=== PATIENT | male | born 1995 | race Caucasian/White ===

== ENCOUNTER 2020-04-11 16:09 | Emergency (ER) | payer OTHER, SELFPAY ==
[2020-04-11 16:11] VITALS: BP 152/82; PULSE 110; RESP 14; TEMP 36.6; O2SAT 98; BMI 31.9
[2020-04-11] MEDS: Lidocaine HCl 1 % MPF 5 ML VIAL SUBCUT (17:11)
--- NOTE | 2020-04-11 17:31 | ED.WOUNDLAC ---
HPI - Wound/Laceration General Chief Complaint: Wound/Laceration Stated Complaint: laceration Time Seen by Provider: 04/11/20 16:56 Source: patient Mode of arrival: ambulatory Limitations: no limitations History of Present Illness HPI narrative: 24-year-old male presenting to the ED with a laceration to his right hand after he cut himself with his window. Denies any other symptoms complaints or concerns at this time. Denies concerns of foreign body. Reports he is not up-to-date on tetanus. Related Data Allergies Allergy/AdvReac Type Severity Reaction Status Date / Time No Known Allergies Allergy Verified 04/11/20 16:50 Review of Systems Review of Systems: Constitutional : No Fever, No Chills, Cardiovascular : No Chest Pain, No SOB Respiratory : No Dyspnea Gastrointestinal : No abdominal pain Musculoskeletal : No Joint Swelling Skin : positive skin laceration, No Foreign bodies, No rash, No surrounding erythema Neuro : No Weakness, No Numbness/tingling Psych : No SI/HI/thoughts of self injury Yes all other systems are reviewed and are negative [facility] Past Medical History Attestation statement: The following information was validated with the patient. Social History Social History Smoking Status: Current every day smoker Substance Use Type: Marijuana Advance Directives: No Advance Directives Information Provided: No Physical Exam Vital Signs: Vital Signs: Last Vital Signs Temp 98 F 04/11/20 16:11 Pulse 110 H 04/11/20 16:11 Resp 14 04/11/20 16:11 BP 152/82 H 04/11/20 16:11 Pulse Ox 98 04/11/20 16:11 Body Mass Index 31.9 Vital signs have been reviewed as normal and appeared to be correct. Blood pressure normal. Heart rate normal. Respiration rate normal. Temperature normal. Oxygen saturation normal. Appearance: Alert. Oriented X3. No acute distress. Head: Normal external exam. Normocephalic. Atraumatic. Eyes: PERRLA. EOMI. Conjunctiva and sclera normal. Eyelids normal. ENT: Moist mucous membranes. Neck: Normal inspection. Neck supple. FROM. No adenopathy. No meningeal signs. CVS: Normal heart rate and rhythm. Heart sound normal. No murmurs noted. Pulses normal throughout. Respiratory: No respiratory distress. Painless inspiration Back: Full range of motion noted. Skin: Skin warm and dry. Normal skin color. Normal skin turgor. No rashes/lesions noted. to right Dorsal aspect of hand there is a 1 cm intermediate laceration noted. No foreign bodies noted. Extremities: Extremities exhibit normal range of motion. Extremities nontender. Neuro: Oriented X 3. No motor deficit. No sensory deficit. Reflexes normal. Course Course Course Narrative: Patient is now status post laceration repair. Patient tolerated procedure well. No complications. Patient's tetanus was updated at this time. Will DC home with instructions return in 10-14 days for suture removal in to return sooner if any new or worsening symptoms to follow-up with primary care provider as well. Patient understands agrees with this plan. Procedures Laceration Laceration 1: Site: hand Side (If applicable): right Size (cm): 1 Description: linear Depth: simple, single layer Local Anesthetic: lidocaine 1% Amount of anesthesia used (mL): 4 Pre-repair: wound explored, irrigated extensively and deep structures intact Skin layer closed with: nylon Number of sutures: 3 Technique: simple, interrupted MDM - Wound/Laceration Medical Records Attestation: I reviewed the patient's medical records. Discharge Plan Discharge Clinical Impression: Laceration Patient Disposition: Home, Self-Care Instructions: Laceration (ED) Additional Instructions: return in 10-14 days for suture removal or before if any signs of infection such as surrounding redness, increased pain, increased swelling, drainage or any other symptoms. Referrals: Virginia Hansen PA [Emergency Midlevel Provider] - 10 days ( for suture removal) Stand Alone Forms: Work/School Release Print Language: Sami
== END 2020-04-11 18:31 | disposition home or self-care (01) ==
PROVIDERS: Emergency Provider Emergency Medicine; PCP Internal Medicine
DX: S61.411A Laceration without foreign body of right hand, initial encounter (principal); S60.511A Abrasion of right hand, initial encounter; M79.641 Pain in right hand; W25.XXXA Contact with sharp glass, initial encounter; Y93.9 Activity, unspecified; Y92.9 Unspecified place or not applicable; Y99.9 Unspecified external cause status; F17.200 Nicotine dependence, unspecified, uncomplicated; Z71.6 Tobacco abuse counseling
CPT/HCPCS: 12001; 90471; 90715; 99284